=== PATIENT | female | born 1970 | race Caucasian/White ===

== ENCOUNTER 2020-08-20 10:33 | Inpatient (IN) | payer OTHER ==
[2020-08-20 10:57] VITALS: BMI 30.3
[2020-08-20] MEDS ORDERED: ACETAMINOPHEN 325 MG TABLET (FP) PO PRN ×2 (12:42)
[2020-08-20] MEDS ORDERED: METHOCARBAMOL 500 MG TABLET PO PRN (12:42)
[2020-08-20] MEDS ORDERED: MAGNESIUM HYDROX 2400MG/30ML ORAL SUSPENSION 30 ML CUP PO PRN (12:42)
[2020-08-20] MEDS ORDERED: MAGNESIUM CITRATE 300 ML BOTTLE PO PRN (12:42)
[2020-08-20] MEDS ORDERED: NICOTINE POLACRILEX 2 MG GUM BUC PRN (12:42)
[2020-08-20] MEDS ORDERED: MENTHOL/PHENOL 1 EACH UD MM PRN (12:42)
[2020-08-20] MEDS ORDERED: IBUPROFEN 400 MG TABLET (FP) PO PRN (12:42)
[2020-08-20] MEDS ORDERED: ONDANSETRON *ODT* 4 MG TABLET SL PRN (12:42)
[2020-08-20] MEDS ORDERED: MAG HYDROX/AL HYDROX/SIMETH 30 ML UNIT-DOSE CUP PO PRN (12:42)
[2020-08-20] MEDS: diazePAM 5 MG TABLET PO PRN (14:06)
[2020-08-20] MEDS: PRENATAL VITAMINS W/ FOLIC ACID TABLET (FP) PO SCH (14:06)
[2020-08-20] MEDS: NICOTINE 21 MG/24 HOURS TOPICAL PATCH TD SCH (14:06)
[2020-08-20] MEDS: hydrOXYzine PAMOATE 25 MG CAPSULE (FP) PO SCH ×3 (14:09→22:40)
[2020-08-20] MEDS: diazePAM 5 MG TABLET PO SCH ×3 (14:11→22:40)
[2020-08-20] MEDS: BISMUTH SUBSALICYLATE 524 MG/30 ML PO PRN (14:40)
[2020-08-20 17:08] LABS: HEMATOCRIT 31.3 % (32.4-45.2); HEMOGLOBIN 10.5 GM/dL (10.7-15.3); MCH 29.3 pg (25.7-33.7); MCHC 33.5 g/dl (32.0-36.0); MEAN CELL VOLUME 87.4 fl (80-96); MEAN PLT VOLUME 8.1 fl (7.5-11.1); PLATELET COUNT 240 10^3/uL (134-434); RBC 3.58 M/mm3 (3.60-5.2); RDW 14.5 % (11.6-15.6); WHITE BLOOD COUNT 4.1 K/mm3 (4.0-10.0)
[2020-08-20 17:13] LABS: ALBUMIN 3.4 g/dl (3.4-5.0); BLOOD UREA NITROGEN 10.5 mg/dL (7-18)
[2020-08-20 17:16] LABS: CREATININE 0.7 mg/dL (0.55-1.3)
[2020-08-20 17:17] LABS: BILIRUBIN,TOTAL 0.3 mg/dL (0.2-1)
[2020-08-20 17:18] LABS: TOT PROT 7.4 g/dl (6.4-8.2)
[2020-08-20 18:09] LABS: HIV INTERPRETATION NEGATIVE (NEGATIVE)
[2020-08-20] MEDS: THIAMINE HCL 100 MG TABLET (FP) PO SCH (22:40)
[2020-08-20] MEDS: MELATONIN 5 MG TABLETS PO SCH (22:40)
[2020-08-21] MEDS: diazePAM 5 MG TABLET PO SCH ×4 (06:02→22:56)
[2020-08-21] MEDS: hydrOXYzine PAMOATE 25 MG CAPSULE (FP) PO SCH ×5 (06:02→22:47)
[2020-08-21] MEDS: METHADONE HCL 40 MG DISPERSABLE TABLET PO SCH (10:29)
[2020-08-21] MEDS: NICOTINE 21 MG/24 HOURS TOPICAL PATCH TD SCH (10:30)
[2020-08-21] MEDS: PRENATAL VITAMINS W/ FOLIC ACID TABLET (FP) PO SCH (10:30)
[2020-08-21] MEDS: THIAMINE HCL 100 MG TABLET (FP) PO SCH (22:47)
[2020-08-21] MEDS: MELATONIN 5 MG TABLETS PO SCH (22:47)
[2020-08-22] MEDS: METHADONE HCL 40 MG DISPERSABLE TABLET PO SCH (06:37)
[2020-08-22] MEDS: diazePAM 5 MG TABLET PO SCH ×3 (06:37→22:03)
[2020-08-22] MEDS: hydrOXYzine PAMOATE 25 MG CAPSULE (FP) PO SCH ×5 (06:37→22:02)
[2020-08-22] MEDS: PRENATAL VITAMINS W/ FOLIC ACID TABLET (FP) PO SCH (10:19)
[2020-08-22] MEDS: NICOTINE 21 MG/24 HOURS TOPICAL PATCH TD SCH (10:19)
[2020-08-22] MEDS: diazePAM 5 MG TABLET PO PRN (10:19)
[2020-08-22] MEDS: BISMUTH SUBSALICYLATE 524 MG/30 ML PO PRN (10:22)
[2020-08-22 17:47] LABS: URINE APPEARANCE CLOUDY; URINE BILIRUBIN NEGATIVE (NEGATIVE); URINE COLOR YELLOW; URINE GLUCOSE (UA) NEGATIVE (NEGATIVE); URINE KETONE TRACE (NEGATIVE); URINE LEUK ESTERASE NEGATIVE (NEGATIVE); URINE NITRITE NEGATIVE (NEGATIVE); URINE PROTEIN NEGATIVE (NEGATIVE)
[2020-08-22] MEDS: MELATONIN 5 MG TABLETS PO SCH (22:02)
[2020-08-22] MEDS: THIAMINE HCL 100 MG TABLET (FP) PO SCH (22:02)
[2020-08-23] MEDS: diazePAM 5 MG TABLET PO SCH ×2 (05:35→18:20)
[2020-08-23] MEDS: hydrOXYzine PAMOATE 25 MG CAPSULE (FP) PO SCH ×2 (05:35→09:33)
[2020-08-23] MEDS: METHADONE HCL 40 MG DISPERSABLE TABLET PO SCH (05:36)
[2020-08-23] MEDS: NICOTINE 21 MG/24 HOURS TOPICAL PATCH TD SCH (09:32)
[2020-08-23] MEDS: PRENATAL VITAMINS W/ FOLIC ACID TABLET (FP) PO SCH (09:32)
[2020-08-23] MEDS: diazePAM 5 MG TABLET PO PRN (09:33)
[2020-08-23] MEDS: BISMUTH SUBSALICYLATE 524 MG/30 ML PO PRN (09:34)
[2020-08-23] MEDS ORDERED: ALBUTEROL SO4 HFA INHALER IH PRN (10:29)
[2020-08-23] MEDS: hydrOXYzine PAMOATE 25 MG CAPSULE (FP) PO PRN (13:25)
[2020-08-23] MEDS: metroNIDAZOLE 250 MG TABLET PO SCH ×2 (13:54→22:13)
[2020-08-23] MEDS: THIAMINE HCL 100 MG TABLET (FP) PO SCH (22:12)
[2020-08-23] MEDS: MELATONIN 5 MG TABLETS PO SCH (22:12)
[2020-08-24] MEDS: METHADONE HCL 40 MG DISPERSABLE TABLET PO SCH (05:48)
[2020-08-24] MEDS: metroNIDAZOLE 250 MG TABLET PO SCH (05:49)
[2020-08-24] MEDS ORDERED: diazePAM 5 MG TABLET PO ONE (06:00)
[2020-08-24 06:31] VITALS: PULSE 69
[2020-08-24 08:57] VITALS: BP 104/62; TEMP 96.9
[2020-08-24] MEDS: NICOTINE 21 MG/24 HOURS TOPICAL PATCH TD SCH (10:06)
[2020-08-24] MEDS: PRENATAL VITAMINS W/ FOLIC ACID TABLET (FP) PO SCH (10:06)
[2020-08-24] MEDS: hydrOXYzine PAMOATE 25 MG CAPSULE (FP) PO PRN (10:06)
== END 2020-08-24 12:45 | disposition other institution (70) | DRG 773 ==
LOC: YASAS 10:33 → Y3N 13:06
PROVIDERS: ADMIT Allergy & Immunology; ATTEND Allergy & Immunology
PROC: HZ2ZZZZ Detoxification Services for Substance Abuse Treatment (ICD-10-PCS; principal; 2020-08-20)
DX: F10.230 Alcohol dependence with withdrawal, uncomplicated (principal); F11.20 Opioid dependence, uncomplicated; F13.20 Sedative, hypnotic or anxiolytic dependence, uncomplicated; F14.20 Cocaine dependence, uncomplicated; F17.210 Nicotine dependence, cigarettes, uncomplicated; F19.280 Other psychoactive substance dependence with psychoactive substance-induced anxiety disorder; F19.282 Other psychoactive substance dependence with psychoactive substance-induced sleep disorder; F19.24 Other psychoactive substance dependence with psychoactive substance-induced mood disorder; F32.9 Major depressive disorder, single episode, unspecified; F41.9 Anxiety disorder, unspecified; F90.9 Attention-deficit hyperactivity disorder, unspecified type; N76.0 Acute vaginitis; Z96.652 Presence of left artificial knee joint; Z91.19 Patient's noncompliance with other medical treatment and regimen; Z56.0 Unemployment, unspecified; Z59.0 Homelessness
CPT/HCPCS: 36415; 71046-TC-FY; 80053; 81003; 85027; 86780; 87086; 87389; C9803; U0003; U0005

== ENCOUNTER 2020-08-24 12:53 | Inpatient (IN) | payer OTHER ==
[~2020-08-24 12:53] MED LIST: ACETAMINOPHEN 325 MG TABLET (FP) PO PRN; IBUPROFEN 400 MG TABLET (FP) PO PRN; LOPERAMIDE HCL 2 MG CAPSULE PO PRN; MAG HYDROX/AL HYDROX/SIMETH 30 ML UNIT-DOSE CUP PO PRN; MAGNESIUM CITRATE 300 ML BOTTLE PO PRN; MAGNESIUM HYDROX 2400MG/30ML ORAL SUSPENSION 30 ML CUP PO PRN; MENTHOL/PHENOL 1 EACH UD MM PRN; NICOTINE POLACRILEX 2 MG GUM BUC PRN; P-EPHED 60MG/TRIPROLIDI 2.5MG TABLET PO PRN; guaiFENesin 200 MG/10 ML 10 ML UNIT-DOSE CUPS PO PRN
[2020-08-24] MEDS ORDERED: ALBUTEROL SO4 HFA INHALER IH PRN (13:13)
[2020-08-24] MEDS ORDERED: PT OWN MED DRAWER 7, Y5N ONE (21:21)
[2020-08-24] MEDS: metroNIDAZOLE 250 MG TABLET PO SCH (21:22)
[2020-08-24] MEDS: THIAMINE HCL 100 MG TABLET (FP) PO SCH (21:22)
[2020-08-24] MEDS ORDERED: MELATONIN 5 MG TABLETS PO SCH (22:00)
[2020-08-25] MEDS ORDERED: PT OWN MED DRAWER 7, Y5N ONE (04:22)
[2020-08-25] MEDS: METHADONE HCL 40 MG DISPERSABLE TABLET PO SCH (06:13)
[2020-08-25] MEDS: metroNIDAZOLE 250 MG TABLET PO SCH ×3 (06:14→21:30)
[2020-08-25] MEDS: hydrOXYzine PAMOATE 25 MG CAPSULE (FP) PO PRN ×2 (10:22→14:45)
[2020-08-25] MEDS: PRENATAL VITAMINS W/ FOLIC ACID TABLET (FP) PO SCH (10:22)
[2020-08-25] MEDS: NICOTINE 21 MG/24 HOURS TOPICAL PATCH TD SCH (10:22)
[2020-08-25] MEDS: THIAMINE HCL 100 MG TABLET (FP) PO SCH (21:30)
[2020-08-25] MEDS: BUDESONIDE/FORMETEROL FUMARATE 80/4.5 mcg INHALER IH SCH (21:30)
[2020-08-25] MEDS ORDERED: MELATONIN 5 MG TABLETS PO SCH (22:00)
[2020-08-25 23:43] VITALS: BMI 32.7
[2020-08-26] MEDS: METHADONE HCL 40 MG DISPERSABLE TABLET PO SCH (06:15)
[2020-08-26] MEDS: metroNIDAZOLE 250 MG TABLET PO SCH ×2 (06:15→14:25)
[2020-08-26 06:47] VITALS: BP 104/55; PULSE 67; TEMP 97.8
[2020-08-26] MEDS ORDERED: ATOMOXETINE HCL 25 MG CAPSULE PO SCH (10:00)
[2020-08-26] MEDS: hydrOXYzine PAMOATE 50 MG CAPSULE (FP) PO PRN ×2 (10:16→14:26)
[2020-08-26] MEDS: NICOTINE 21 MG/24 HOURS TOPICAL PATCH TD SCH (10:16)
[2020-08-26] MEDS: PRENATAL VITAMINS W/ FOLIC ACID TABLET (FP) PO SCH (10:16)
[2020-08-26] MEDS: BUDESONIDE/FORMETEROL FUMARATE 80/4.5 mcg INHALER IH SCH (10:18)
== END 2020-08-26 15:16 | disposition home or self-care (01) | DRG 772 ==
LOC: YASAS 12:53 → Y5N 12:54 → Y3W 08-25 12:43
PROVIDERS: ADMIT Allergy & Immunology; ATTEND Allergy & Immunology
PROC: HZ42ZZZ Group Counseling for Substance Abuse Treatment, Cognitive-Behavioral (ICD-10-PCS; principal; 2020-08-24)
DX: F10.20 Alcohol dependence, uncomplicated (principal); F11.20 Opioid dependence, uncomplicated; F14.20 Cocaine dependence, uncomplicated; F13.20 Sedative, hypnotic or anxiolytic dependence, uncomplicated; F17.210 Nicotine dependence, cigarettes, uncomplicated; F19.282 Other psychoactive substance dependence with psychoactive substance-induced sleep disorder; F19.280 Other psychoactive substance dependence with psychoactive substance-induced anxiety disorder; F19.24 Other psychoactive substance dependence with psychoactive substance-induced mood disorder; F41.9 Anxiety disorder, unspecified; F32.9 Major depressive disorder, single episode, unspecified; F90.9 Attention-deficit hyperactivity disorder, unspecified type; Z96.652 Presence of left artificial knee joint; Z91.410 Personal history of adult physical and sexual abuse; Z86.19 Personal history of other infectious and parasitic diseases; Z59.0 Homelessness; Z56.0 Unemployment, unspecified

== ENCOUNTER 2024-06-12 11:00 | Inpatient (IN) | payer OTHER ==
[2024-06-12 11:15] VITALS: BMI 32.0
[2024-06-12] MEDS ORDERED: IBUPROFEN 400 MG TABLET (FP) PO PRN (11:30)
[2024-06-12] MEDS ORDERED: MAGNESIUM HYDROX 2400MG/30ML ORAL SUSPENSION 30 ML CUP PO PRN (11:30)
[2024-06-12] MEDS ORDERED: guaiFENesin 600 MG TABLET.ER (FP) PO PRN (11:30)
[2024-06-12] MEDS ORDERED: POLYETHYLENE GLYCOL (HEALTHYLAX) 3350 17 GM PACKET PO PRN (11:30)
[2024-06-12] MEDS ORDERED: NALOXONE (NARCAN) HCL 4 MG/0.1 ML SPRAY NS PRN (11:30)
[2024-06-12] MEDS ORDERED: DICYCLOMINE HCL 10 MG CAPSULE PO PRN (11:30)
[2024-06-12] MEDS ORDERED: BENZOCAINE/MENTHOL (CHLORASEPTIC ) LOZENGE MM PRN (11:30)
[2024-06-12] MEDS ORDERED: BENZONATATE 200 MG CAPSULE PO PRN (11:30)
[2024-06-12] MEDS ORDERED: ONDANSETRON *ODT* 4 MG TABLET SL PRN (11:30)
[2024-06-12] MEDS ORDERED: MAG HYDROX/AL HYDROX/SIMETH 30 ML UNIT-DOSE CUP PO PRN (11:30)
[2024-06-12] MEDS ORDERED: ALBUTEROL SO4 HFA INHALER IH PRN (11:33)
[2024-06-12] MEDS ORDERED: PRENATAL VITAMINS W/ FOLIC ACID TABLET (FP) PO ONE (12:36)
[2024-06-12] MEDS: PRENATAL VITAMINS W/ FOLIC ACID TABLET (FP) PO SCH (12:37)
[2024-06-12] MEDS: ACETAMINOPHEN 325 MG TABLET (FP) PO PRN (17:18)
[2024-06-12] MEDS: diazePAM 5 MG TABLET PO SCH (17:19)
[2024-06-12] MEDS: THIAMINE 100 MG TABLET PO SCH (22:37)
[2024-06-12] MEDS: MELATONIN 5 MG TABLETS PO SCH (22:37)
[2024-06-13] MEDS: BISMUTH SUBSALICYLATE 524 MG/30 ML PO PRN (01:59)
[2024-06-13] MEDS: METHADONE PO SCH (05:52)
[2024-06-13] MEDS ORDERED: methaDONE HCL 10 MG TABLET PO SCH ×2 (06:00)
[2024-06-13] MEDS: LOPERAMIDE HCL 2 MG CAPSULE PO PRN (06:01)
[2024-06-13] MEDS: IBUPROFEN 600 MG TABLET (FP) PO PRN (09:52)
[2024-06-13] MEDS: METHOCARBAMOL 500 MG TABLET PO PRN (09:53)
[2024-06-13 11:53] LABS: POTASSIUM 4.1 mmol/L (3.5-5.1)
[2024-06-13 11:56] LABS: HEMATOCRIT 32.4 % (34.1-44.9); HEMOGLOBIN 10.1 g/dL (11.2-15.7); MCHC 31.2 g/dl (32.2-35.5); MEAN CELL VOLUME 94.7 fl (79.4-94.8); RDW 13.5 % (12.3-16.6)
[2024-06-13 12:19] LABS: BILIRUBIN,TOTAL 0.2 mg/dL (0.2-1); CALCIUM 8.9 mg/dL (8.5-10.1)
[2024-06-13 12:22] LABS: CREATININE 0.7 mg/dL (0.55-1.3)
[2024-06-13 12:24] LABS: TOT PROT 6.3 g/dl (6.4-8.2)
[2024-06-13] MEDS: PNEUMOC 20-VAL CONJ-DIP CRM/PF 0.5 ML SYRINGE IM ONE (12:56)
[2024-06-13] MEDS: diazePAM 5 MG TABLET PO PRN (14:00)
[2024-06-14] MEDS: diazePAM 5 MG TABLET PO SCH (05:48)
[2024-06-14] MEDS: hydrOXYzine PAMOATE 25 MG CAPSULE (FP) PO PRN (22:07)
[2024-06-15] MEDS: diazePAM 5 MG TABLET PO SCH (05:55)
[2024-06-16] MEDS: diazePAM 5 MG TABLET PO ONE (05:38)
[2024-06-16 12:52] VITALS: BP 114/61; PULSE 74; RESP 16; TEMP 97.4
== END 2024-06-16 13:31 | disposition other institution (70) | DRG 773 ==
LOC: YASAS 11:00 → Y3N 12:28
PROVIDERS: ADMIT Allergy & Immunology; ATTEND Allergy & Immunology
PROC: HZ2ZZZZ Detoxification Services for Substance Abuse Treatment (ICD-10-PCS; principal; 2024-06-12)
DX: F10.230 Alcohol dependence with withdrawal, uncomplicated (principal); F13.230 Sedative, hypnotic or anxiolytic dependence with withdrawal, uncomplicated; F11.20 Opioid dependence, uncomplicated; F14.10 Cocaine abuse, uncomplicated; F31.9 Bipolar disorder, unspecified; F19.24 Other psychoactive substance dependence with psychoactive substance-induced mood disorder; F90.9 Attention-deficit hyperactivity disorder, unspecified type; G47.00 Insomnia, unspecified; J45.909 Unspecified asthma, uncomplicated; Z59.02 Unsheltered homelessness; Z91.199 Patient's noncompliance with other medical treatment and regimen due to unspecified reason
CPT/HCPCS: 36415; 71045-TC-FY; 80053; 80305; 80307; 81025; 85027; 86780; 87811; 93005; 93010